=== PATIENT | female | born 1970 | race Caucasian/White ===

== ENCOUNTER → 2016-05-27 | Outpatient (CLI) | payer OTHER ==
[~2016-05-27] MED LIST: BUSP15TA70 PO; CLON0.5T3 PO; MAGNESIUM CHELATED PO; ONDA4TAB7 SL; PROM25TA9 PO; RIZA10TA18 PO; ZINC25TA2 PO; [UNRECOGNIZED DRUG - OTHER] PO
--- NOTE | 2016-05-28 15:11 | MAMMOGRAPHY REPORT ---
BILATERAL DIGITAL SCREENING MAMMOGRAM TOMOSYNTHESIS WITH CAD: 05/27/2016 CLINICAL HISTORY: Routine screening. Patient has no complaints. TECHNIQUE: Breast tomosynthesis in addition to standard 2D mammography was performed. Current study was also evaluated with a Computer Aided Detection (CAD) system. COMPARISON: Comparison is made to exams dated: 05/24/2015 mammogram, 05/20/2013 mammogram, 05/23/20 14 mammogram, 05/24/2013 mammogram, 05/18/2012 mammogram, and 05/03/2011 mammogram - [facility]. BREAST COMPOSITION: The tissue of both breasts is extremely dense, which lowers the sensitivity of mammography. FINDINGS: The parenchyma pattern is similar to prior exams. There are scattered stable benign-appea ring round and punctate microcalcifications. No new suspicious mass, architectural distortion or cl uster of microcalcifications is seen. IMPRESSION: ACR BI-RADS CATEGORY 1: NEGATIVE There is no mammographic evidence of malignancy. A 1 year screening mammogram is recommended. The p atient will receive written notification of the results. Approximately 10% of breast cancers are not detected with mammography. A negative mammographic repor t should not delay biopsy if a clinically suggestive mass is present. Darling Bueno M.D. ay/:05/27/2016 16:19:03 Associate Loan Officer: Rikki REEVES(Otis)(M), [facility] letter sent: Normal 1/2 BI-RADS Code: ACR BI-RADS Category 1: Negative
== END | disposition home or self-care (01) ==
LOC: C.MAMM 09:30
PROVIDERS: ATTEND Obstetrics & Gynecology
DX: Z12.31 Encounter for screening mammogram for malignant neoplasm of breast (principal)

== ENCOUNTER → 2017-01-03 | Day surgery (SDC) | payer OTHER ==
[2016-12-24 07:49] VITALS: Ht 160 cm; Wt 50.0 kg
[~2017-01-03] VITALS: Ht 160 cm; Wt 50.0 kg
[~2017-01-03] MED LIST changes: +LIDOCAINE HCL 2% 2 ML VIAL (20MG/ML) ONE; -ONDA4TAB7 SL; +PROPOFOL IV EMULSION 10 MG/ML 20 ML VIAL IV ONE; +SODIUM CHLORIDE 0.9% 500ML 500 ML IV ONE; -[UNRECOGNIZED DRUG - OTHER] PO
--- NOTE | 2017-01-03 11:14 | Endo History and Physical ---
History & Physical Date of Service: Jan 03, 2017. Chief Complaint: abnormal finding gi tract imaging, hx polyps Referring Physician: Dr. Margarita Iglesias History of Present Illness 46 yo CF who presents for colonoscopy secondary to history of colon polyps and abnormal GI imaging. Past Surgical History Hx Cardiac Surgery: No Hx Internal Defibrillator: No Hx Pacemaker: No Hx Abdominal Surgery: Yes (PARTIAL HYSTER) Hx of Implantable Prosthesis: No Hx Post-Op Nausea and Vomiting: No Hx Cancer Surgery: No Hx Thoracic Surgery: No Hx Orthopedic: No Hx Urinary Tract Surgery: No Family History Colon CA Social History Smoking Status: Never Smoker Hx Substance Use: No Hx Alcohol Use: Yes (SOCIAL) Allergies Coded Allergies: Celecoxib (Verified Allergy, Severe, ANAPHYLAXIS, 12/24/16) Current Medications Reported Home Medications Medications Dose Route/Sig Max Daily Dose Days Date Category Dose Instructions Zinc Picolinate (Zinc) 25 Mg Tab 50 Mg PO QAM 12/24/16 Reported [Magnesium Chelated] 400 Mg PO QAM 12/24/16 Reported Klonopin (Clonazepam) 0.5 Mg Tab 0.5 Mg PO TID PRN 12/24/16 Reported Buspar (Buspirone Hcl) 15 Mg Tab 15 Mg PO BID 12/24/16 Reported Phenergan (Promethazine HCl) 25 Mg Tab 25 Mg PO Q6H PRN 11/08/14 Reported Maxalt (Rizatriptan Benzoate) 10 Mg Tab 10 Mg PO UD PRN 03/19/11 Reported TAKE ONE TABLET AT ONSET OF MIGRAINE,MAY REPEAT IN TWO HOURS IF NEEDED. MAXIMUM OF TWO TABLETS OVER TWENTY-FOUR HOURS. Vital Signs Weight (Kilograms): 50 Height (Feet): 5 Height (Inches): 3 Date Time Temp Pulse Resp B/P (MAP) Pulse Ox O2 Delivery O2 Flow Rate FiO2 01/03/17 10:32 36.5 60 18 94/46 (62) 100 Room Air Physical Exam General Appearance: WD/WN, no apparent distress Respiratory/Chest: Auscultation: breath sounds normal Cardiovascular: Heart Auscultation: RRR Abdomen: Bowel Sounds: normal Inspection & Palpation: soft, non-distended, no tenderness, guarding & rebound Assessment and Plan Assessment: 46 yo CF who presents for colonoscopy secondary to history of colon polyps and abnormal GI imaging. Plan: Proceed with colonoscopy
--- NOTE | 2017-01-03 12:18 | Anesthesiology Progress Note ---
Anesthesia Post Op Note Date & Time Jan 03, 2017 at 12:18 Vital Signs Pain Intensity: 0 Vital Signs Past 12 Hours Date Time Temp Pulse Resp B/P (MAP) Pulse Ox O2 Delivery O2 Flow Rate FiO2 01/03/17 10:32 36.5 60 18 94/46 (62) 100 Room Air Notes Mental Status: alert / awake / arousable, participated in evaluation Pt Amnestic to Procedure: Yes Nausea / Vomiting: adequately controlled Pain: adequately controlled Airway Patency, RR, SpO2: stable & adequate BP & HR: stable & adequate Hydration State: stable & adequate Anesthetic Complications: no major complications apparent
--- NOTE | 2017-01-03 12:26 | GI REPORT ---
Procedure Date: 01/03/2017 11:34 AM Procedure: Colonoscopy Indications: High risk colon cancer surveillance: Personal history of colonic polyps Medicines: Monitored Anesthesia Care Complications: No immediate complications. Estimated Blood Loss: Estimated blood loss: none. Procedure: Pre-Anesthesia Assessment: - Prior to the procedure, a History and Physical was performed, and patient medications and allergies were reviewed. The patient's tolerance of previous anesthesia was also reviewed. The risks and benefits of the procedure and the sedation options and risks were discussed with the patient. All questions were answered, and informed consent was obtained. Prior Anticoagulants: The patient has taken no previous anticoagulant or antiplatelet agents. ASA Grade Assessment: II - A patient with mild systemic disease. After reviewing the risks and benefits, the patient was deemed in satisfactory condition to undergo the procedure. After I obtained informed consent, the scope was passed under direct vision. Throughout the procedure, the patient's blood pressure, pulse, and oxygen saturations were monitored continuously. The scope was introduced through the anus and advanced to the terminal ileum. The colonoscopy was performed without difficulty. The patient tolerated the procedure well. The quality of the bowel preparation was good. The terminal ileum, ileocecal valve, appendiceal orifice, and rectum were photographed. Findings: A 4 mm polyp was found in the rectum. The polyp was sessile. The polyp was removed with a cold snare. Resection and retrieval were complete. Non-bleeding internal hemorrhoids were found during retroflexion. The hemorrhoids were small. Impression: - One 4 mm polyp in the rectum, removed with a cold snare. Resected and retrieved. - Non-bleeding internal hemorrhoids. Recommendation: - Resume previous diet. - Continue present medications. - Repeat colonoscopy for surveillance based on pathology results. - Return to primary care physician as previously scheduled. Yordan Pollard DO 01/03/2017 12:26:01 PM This report has been signed electronically. Note Initiated On: 01/03/2017 11:34 AM I attest to the content of the Intraoperative Record and orders documented therein, exceptions below
--- NOTE | 2017-01-03 12:33 | Discharge Instructions ---
Endoscopy Patient Instructions Date / Procedure(s) Performed Jan 03, 2017. Colonoscopy Allergy Information Coded Allergies: Celecoxib (Verified Allergy, Severe, ANAPHYLAXIS, 12/24/16) Discharge Date / Findings Jan 03, 2017. Rectal polyp x1 Internal hemorrhoids Medication Instructions OK to resume all medications today as prescribed Reported Home Medications Medications Dose Route/Sig Max Daily Dose Days Date Category Dose Instructions Zinc Picolinate (Zinc) 25 Mg Tab 50 Mg PO QAM 12/24/16 Reported [Magnesium Chelated] 400 Mg PO QAM 12/24/16 Reported Klonopin (Clonazepam) 0.5 Mg Tab 0.5 Mg PO TID PRN 12/24/16 Reported Buspar (Buspirone Hcl) 15 Mg Tab 15 Mg PO BID 12/24/16 Reported Phenergan (Promethazine HCl) 25 Mg Tab 25 Mg PO Q6H PRN 11/08/14 Reported Maxalt (Rizatriptan Benzoate) 10 Mg Tab 10 Mg PO UD PRN 03/19/11 Reported TAKE ONE TABLET AT ONSET OF MIGRAINE,MAY REPEAT IN TWO HOURS IF NEEDED. MAXIMUM OF TWO TABLETS OVER TWENTY-FOUR HOURS. Provider Instructions Activity Restrictions - No exercising or heavy lifting for 24 hours. - Do not drink alcohol the day of the procedure. - Do not drive a car or operate machinery until the day after the procedure. - Do not make any important decisions or sign important papers in 24 hours after the procedure. Following Day: - Return to full activity which may include returning to work/school. Diet Start your diet with liquids and light foods (jello, soup, juice, toast). Then eat your usual diet if not nauseated. Treatment For Common After Affects For mild abdominal pain, bloating, or excessive gas: - Rest - Eat lightly - Lie on right side Follow-Up Information Follow-up with Dr. Margarita Iglesias as scheduled Anesthesia Information What You Should Know You have had a procedure that required some medicine to reduce anxiety and discomfort. This treatment is called moderate sedation. After receiving the treatment, you may be sleepy, but you will be able to breathe on your own. The effects of the treatment may last for several hours. Follow these instructions along with Activity/Diet recommendations noted above: * Do NOT do anything where dizziness or clumsiness would be dangerous. * Rest quietly at home today, then you can be up and about tomorrow. * Have a responsible person stay with you the rest of today. * You may have had an I.V. today. If so, you may take the dressing off later today. Recommendations Call your doctor if: * Trouble breathing * Continuous vomiting for more than 24 hours * Temperature above 101 degrees * Severe abdominal pain or bloating * Pain not relieved by pain medicine ordered * There is increased drainage or redness from any incision * A large amount of rectal bleeding greater than 2-3 tablespoons. (If you had a polyp/s removed or have hemorrhoids, a small amount of blood - from the rectum is to be expected.) * You have any unanswered questions or concerns. IN THE EVENT OF A SERIOUS EMERGENCY, GO TO THE NEAREST EMERGENCY ROOM Your discharge instructions were prepared by provider Yordan Pollard. Patient Instructions Signature Page Kylah Dee Patient (or Guardian) Signature/Date: I have read and understand the instructions given to me by my caregivers. Caregiver/RN/Doctor Signature/Date: The above-named patient and/or guardian has received patient instructions on this date. + Original Patient Signature Page (only) stays with chart. Please make copy for patient.
[2017-01-03 12:45] VITALS: BP 100/53; PULSE 59; O2SAT 100
== END | disposition home or self-care (01) ==
LOC: C.GI 09:47
PROVIDERS: ATTEND Internal Medicine
DX: Z12.11 Encounter for screening for malignant neoplasm of colon (principal); K62.1 Rectal polyp; K64.8 Other hemorrhoids; Z86.010 Personal history of colon polyps; Z80.0 Family history of malignant neoplasm of digestive organs; Z79.899 Other long term (current) drug therapy

== ENCOUNTER → 2017-02-10 | Outpatient (CLI) | payer OTHER ==
[~2017-02-10] MED LIST changes: -LIDOCAINE HCL 2% 2 ML VIAL (20MG/ML) ONE; -PROPOFOL IV EMULSION 10 MG/ML 20 ML VIAL IV ONE; -SODIUM CHLORIDE 0.9% 500ML 500 ML IV ONE
== END | disposition home or self-care (01) ==
LOC: C.PAPS 10:29
PROVIDERS: ATTEND Obstetrics & Gynecology
DX: Z01.419 Encounter for gynecological examination (general) (routine) without abnormal findings (principal)

== ENCOUNTER → 2017-05-30 | Outpatient (CLI) | payer OTHER ==
--- NOTE | 2017-06-02 07:35 | MAMMOGRAPHY REPORT ---
BILATERAL DIGITAL SCREENING MAMMOGRAM TOMOSYNTHESIS WITH CAD: 05/30/2017 CLINICAL HISTORY: Routine screening. TECHNIQUE: Breast tomosynthesis in addition to standard 2D mammography was performed. Current study was also evaluated with a Computer Aided Detection (CAD) system. COMPARISON: Comparison is made to exams dated: 05/27/2016 mammogram, 05/24/2015 mammogram, 05/23/2014 mammogram, 05/20/2013 mammogram, 05/18/2012 mammogram, and 05/03/2011 mammogram - [facility]. BREAST COMPOSITION: The tissue of both breasts is extremely dense, which lowers the sensitivity of m ammography. FINDINGS: There is a possible new group of calcifications within the left upper outer quadrant, for which spot magnification views are recommended for further evaluation. The remainder of both breasts are stable compared to prior exams, without suspicious masses, calcific ations, or areas of architectural distortion noted. Other scattered bilateral benign-appearing calci fications are not significantly changed. Asymmetry in the left superior posterior breast overlying t he pectoralis muscle is stable dating back to at least the 2012 exam. IMPRESSION: ACR BI-RADS CATEGORY 0: INCOMPLETE EVALUATION: NEED ADDITIONAL IMAGING EVALUATION Left upper outer quadrant calcifications, for which additional imaging evaluation is recommended. The patient will be called to schedule an appointment. Approximately 10% of breast cancers are not detected with mammography. A negative mammographic report should not delay biopsy if a clinically suggestive mass is present. Magi Domingo M.D. /:05/30/2017 15:26:14 Dining Room Captain: Rikki REEVES(Otis)(M), [facility] letter sent: Addl Imaging 0 BI-RADS Code: ACR BI-RADS Category 0: Incomplete Evaluation: Need Additional Imaging Evaluation
== END | disposition home or self-care (01) ==
LOC: C.MAMM 09:29
PROVIDERS: ATTEND Family Medicine
DX: Z12.31 Encounter for screening mammogram for malignant neoplasm of breast (principal); R92.1 Mammographic calcification found on diagnostic imaging of breast

== ENCOUNTER → 2017-06-04 | Outpatient (CLI) | payer OTHER ==
--- NOTE | 2017-06-04 15:32 | MAMMOGRAPHY REPORT ---
UNILATERAL LEFT DIGITAL DIAGNOSTIC MAMMOGRAM: 06/04/2017 CLINICAL HISTORY: 47-year-old woman called back from screening mammography for a possible cluster of microcalcifications in the left upper outer quadrant. No family history of breast cancer. TECHNIQUE: Spot magnification left CC and ML views were obtained. COMPARISON: Comparison is made to exams dated: 05/30/2017 mammogram, 05/24/2015 mammogram, 05/27/2016 ma mmogram, 05/23/2014 mammogram, 05/24/2013 mammogram, and 05/20/2013 mammogram - [facility]. BREAST COMPOSITION: The tissue of the left breast is extremely dense, which lowers the sensitivity o f mammography. FINDINGS: There is 4 mm cluster of round and punctate microcalcifications in the upper outer middle one third of the left breast. No obvious associated architectural distortion or mass. When comparin g back to prior available mammograms, these microcalcifications are new and therefore indeterminate. There are other scattered round microcalcifications in the visualized left breast, suggesting they c ould represent fibrocystic change, although DCIS cannot be completely excluded. Definitive character ization with a stereotactic biopsy is recommended. IMPRESSION: ACR BI-RADS CATEGORY 4: SUSPICIOUS Left breast stereotactic guided biopsy is recommended for a new 4 mm cluster of round and punctate mi crocalcifications in the left upper outer quadrant. These results and recommendations were discussed with the patient at the time of the exam. She tenta tively scheduled the left breast biopsy prior to leaving our department. We also talked about additi onal supplemental screening given extremely dense breasts, touching on screening breast MRI and whole breast ultrasound depending on the patient's personal risk factors. Approximately 10% of breast cancers are not detected with mammography. A negative mammographic report should not delay biopsy if a clinically suggestive mass is present. Darling Bueno M.D. ay/:06/04/2017 13:23:45 Call Center Agent: Aury Velazquez, [facility] letter sent: Abnormal 4/5 BI-RADS Code: ACR BI-RADS Category 4: Suspicious
== END | disposition home or self-care (01) ==
LOC: C.MAMM 12:51
PROVIDERS: ATTEND Family Medicine
DX: R92.0 Mammographic microcalcification found on diagnostic imaging of breast (principal)

== ENCOUNTER → 2017-06-09 | Outpatient (CLI) | payer OTHER ==
--- NOTE | 2017-06-09 13:25 | Discharge Instructions ---
Discharge Instructions Procedure Procedure Date: Jun 09, 2017. Reason for visit: Left Calcs. Discharge Discharge Date: Jun 09, 2017. Discharge Diagnosis: post left breast stereotactic guided biopsy Instructions Activity Recommendations: Additional Limitations (see below) Return to School/Work: no limitations Recommended Home Diet: No Limitations Provider Instructions: ACTIVITY RECOMMENDATIONS: * No lifting, pushing, pulling or exercising the affected side for three days. RETURN TO SCHOOL/WORK: * You may return to work/school after the procedure, but do not perform any strenuous activities for 24 to 48 hours. MEDICATIONS: * Tylenol (two 325 mg) every four to six hours if needed for mild pain (if not allergic to Tylenol). DIET: * Resume previous diet. SPECIAL CARE INSTRUCTIONS: * Keep biopsy site dry for 24 hours. May shower after 24 hours, but do not soak (bathe) incision. * May remove Tegaderm (plastic patch) tomorrow AFTER showering. * Leave the steri-strips on for one week. Allow the steri-strips to fall off by themselves. If not off after one week, you may remove them. You may place a Bandaid crosswise over the strips, if desired. * Apply ice 10 minutes on and 10 minutes off as needed. * Wear a bra at bedtime to sleep more comfortably for 2-3 days. * Your referring physician should have the results after approximately 5 to 7 business days. * Call for unusual bleeding, fever, drainage, etc or if you have any questions call [phone] during normal business hours or after hours call Dr Bueno, . FOLLOW UP VISIT: Follow-up with Referring Physician as scheduled. Allergies Coded Allergies: Celecoxib (Verified Allergy, Severe, ANAPHYLAXIS, 12/24/16) Dario Wall Recommendations: Call your doctor if: * Temperature above 101 degrees * Pain not relieved by pain medicine ordered * There is increased drainage or redness from any incision * You have any unanswered questions or concerns. Your Doctors Instructions noted above were prepared by provider Darling Bueno. Patient Signature Section: Patient Instructions Signature Page Kylah Dee Patient (or Guardian) Signature/Date: I have read and understand the instructions given to me by my caregivers. Caregiver/RN/Doctor Signature/Date: The above-named patient and/or guardian has received patient instructions on this date. + Original Patient Signature Page (only) stays with chart. Please make copy for patient.
--- NOTE | 2017-06-09 14:46 | MAMMOGRAPHY REPORT ---
STEREOTACTIC GUIDED BIOPSY LEFT BREAST: 06/09/2017 CLINICAL HISTORY: 47-year-old woman presents for biopsy of a newly visualized 4 mm cluster of round a nd punctate microcalcifications in the left upper outer quadrant. COMPARISON: Comparison is made to exams dated: 06/09/2017 mammogram, 06/04/2017 mammogram, 05/30/2017 ma mmogram, 05/27/2016 mammogram, 05/24/2015 mammogram, and 05/23/2014 mammogram - [facility]. PATIENT CONSENT: After explaining the risks, benefits and alternatives of the procedure to the patien t, informed consent was obtained both verbally and in writing. Specific risks include: Bleeding, inf ection, puncture of adjacent structure, pain, nontarget biopsy, sampling error, metal allergy and med ication reaction. PROCEDURE DESCRIPTION: A time-out was performed and the left breast was confirmed as the site of biop sy. The patient was placed prone on the stereotactic biopsy table and the breast was placed in CC fro m above compression. A monument stonecutter image was obtained that demonstrated the clustered microcalcifications i n question. They are amenable to sterotactic biopsy. Then +15 and -15 stereo pair images were obta ined. The calcifications were targeted utilizing the coordinates obtained by the computer. The skin was prepped with Betadine. 1% Lidocaine with and without epinipherine was administered as local anest hesia. A small skin incision was made. Through the incision, the needle was inserted to the depth de termined by the computer. 10 samples were obtained using a [employer]iva 9-gauge vacuum-assisted biopsy device. The specimen radiograph demonstrated several sales promotion representative microcalcifications, there fore, a metallic marker was placed at the biopsy site. There was no immediate complication. Hemostasi s was achieved after several minutes of manual compression. The samples were sent to pathology in tw o appropriately labeled containers, "with calcifications" and "without calcifications". All of the sa mples were obtained from the same single biopsy site. Postprocedure CC and ML views of the left breast were obtained. There is a new dumbbell-shaped biop sy marker clip, a few air bubbles and no significant hematoma in the approximate 2:00 middle one thir d of the left breast, at the site of the biopsied clustered microcalcifications seen mammographically . IMPRESSION: STEREOTACTIC GUIDED BIOPSY Status post left breast stereotactic biopsy of a 4 mm cluster of round and punctate microcalcificatio ns in the left upper outer quadrant, with biopsy marker placed at the site. The patient will receive notification of the biopsy results from her referring physician. Darling Bueno M.D. ay/:06/09/2017 13:49:54 Site Acquisition Manager: Rikki REEVES(R)(M), [facility]
--- NOTE | 2017-06-09 14:49 | MAMMOGRAPHY REPORT ---
UNILATERAL LEFT DIGITAL DIAGNOSTIC MAMMOGRAM: 06/09/2017 CLINICAL HISTORY: Status post left breast stereotactic biopsy of new clustered punctate microcalcific ations in the upper outer middle one third of the breast. Please refer to the report from left breast stereotactic guided biopsy performed at the same time for full detail. IMPRESSION: POST PROCEDURE IMAGING FOR MARKER PLACEMENT Please refer to the report from left breast stereotactic guided biopsy performed at the same time for full detail. Approximately 10% of breast cancers are not detected with mammography. A negative mammographic report should not delay biopsy if a clinically suggestive mass is present. Darling Bueno M.D. ay/:06/09/2017 13:26:50 Spanish Interpreter: Rikki RAMIREZ)(M), [facility] BI-RADS Code: Post Procedure Imaging For Marker Placement
== END | disposition home or self-care (01) ==
LOC: C.MAMM 12:40
PROVIDERS: ATTEND Family Medicine
DX: R92.0 Mammographic microcalcification found on diagnostic imaging of breast (principal); N60.92 Unspecified benign mammary dysplasia of left breast

== ENCOUNTER → 2017-07-09 | Outpatient (CLI) | payer OTHER ==
[~2017-07-09] MED LIST changes: +GADAVIST IV PRN
--- NOTE | 2017-07-10 15:10 | MAMMOGRAPHY REPORT ---
BREAST MRI OF BOTH BREASTS : 07/09/2017 CLINICAL HISTORY: 47-year-old woman who presents after a recent left breast stereotactic biopsy of a small new grouping of microcalcifications at atypia. COMPARISON: Comparison is made to exams dated: 06/09/2017 mammogram, 06/04/2017 mammogram, 05/30/2017 ma mmogram, 05/27/2016 mammogram, 05/24/2015 mammogram, and 05/23/2014 mammogram - [facility]. TECHNIQUE: Using a 1.5 Yolanda magnet and dedicated breast coil, multisequence axial images were obtain ed through the breasts. After uneventful IV administration of 5 mL of Gadavist, dynamic multiphase c ontrast-enhanced axial images, and sagittal postcontrast were obtained. Temporal subtraction axial i mages and 3-D MIP images are provided. Everything was then reviewed on a 3-D workstation, [employer]. FINDINGS: There are scattered cysts in both breasts, compatible with fibrocystic change. The dominant cyst in the approximate 12:00 middle one third of the left breast measures 15 mm. There is moderate backgrou nd parenchymal enhancement in the breasts. No dominant suspicious enhancing mass, definite suspiciou s area of non-mass enhancement, architectural distortion or suspicious kinetics identified. There is a small round area of susceptibility artifact in the upper outer middle one third of the left breast , denoting the site of recent stereotactic biopsy which yielded atypia. There is no abnormal enhance ment surrounding the biopsy marker clip to suggest additional disease at the site of biopsy. No abno rmal focal skin thickening or nipple retraction appreciated. The retromammary fat is intact. No concepcion picious axillary adenopathy identified. IMPRESSION: ACR BI-RADS CATEGORY 4: SUSPICIOUS 1. Susceptibility artifact from a biopsy marker clip is identified in the upper outer middle one thi rd of the left breast, denoting the site of biopsy-proven atypia. Surgical excision is recommended, although there is no abnormal enhancement surrounding the biopsy marker clip to suggest additional di sease. 2. Within the limitations of slight lowered sensitivity given the moderate degree of background enha ncement, no suspicious enhancing masses, definite non-mass enhancement or suspicious kinetics are see n bilaterally. Darling Bueno M.D. ay/:07/09/2017 16:46:14 Superintendent Sales: protective signal repairer helper, [facility] letter sent: Abnormal 4/5 BI-RADS Code: ACR BI-RADS Category 4: Suspicious
== END | disposition home or self-care (01) ==
LOC: C.MRI 06:29
PROVIDERS: ATTEND Surgery
DX: Z12.31 Encounter for screening mammogram for malignant neoplasm of breast (principal); N60.99 Unspecified benign mammary dysplasia of unspecified breast

== ENCOUNTER → 2018-01-08 | Outpatient (CLI) | payer OTHER ==
[~2018-01-08] MED LIST changes: -CLON0.5T3 PO; -GADAVIST IV PRN; +KLN/5 PO; -MAGNESIUM CHELATED PO; +MISCCAP80 PO; -ZINC25TA2 PO
--- NOTE | 2018-01-08 15:43 | MAMMOGRAPHY REPORT ---
UNILATERAL LEFT DIGITAL DIAGNOSTIC MAMMOGRAM TOMOSYNTHESIS WITH CAD AND TARGETED LEFT ULTRASOUND: 12/24 CLINICAL HISTORY: History of left breast stereotactic biopsy which yielded atypia. 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 She also had 2 weeks o f radiation therapy. The patient reports swelling and soreness of her left upper outer breast for lars roximately 2 weeks. She denies any skin erythema but noticed possible skin changes of the inferior as pect of her left areola. TECHNIQUE: The study was acquired using full field digital technology and interpreted from soft copy. Breast tomosynthesis in addition to standard 2D mammography was performed. Current study was also ev aluated with a Computer Aided Detection (CAD) system. Left CC and MLO 2D and tomosynthesis images we re obtained. Spot magnification views were not obtained of the surgical bed as the patient could not tolerate the additional views due to pain. COMPARISON: Comparison is made to exams dated: 06/09/2017 mammogram, 06/04/2017 mammogram, 05/30/2017 ma mmogram, 05/27/2016 mammogram, 05/24/2015 mammogram, and 07/09/2017 breast MRI - [facility] C enter. BREAST COMPOSITION: The tissue of left breast is extremely dense, which lowers the sensitivity of layo mography. FINDINGS: There are new expected postsurgical changes in the left upper outer quadrant from prior lumpectomy, i ncluding new architectural distortion at the surgical bed. A linear scar marker denotes a scar in th e left upper outer breast. There is minimal skin thickening involving the left lateral breast overly ing the surgical bed, possibly due to radiation therapy. The remainder of the left breast is stable compared to prior exams, without suspicious masses, calcifications, or areas of architectural distort ion noted. Targeted ultrasound was performed of the area of pain and swelling pointed out by the patient involvi ng the left upper outer quadrant. There is ill-defined hypoechoic tissue in the left 2:00 breast at the surgical bed, consistent with expected postsurgical changes. No focal fluid collection is seen a t the surgical bed or elsewhere in the left upper outer quadrant to suggest abscess. No suspicious m asses or other suspicious sonographic abnormalities are seen. Targeted ultrasound was also performed in the left subareolar region in the area of skin changes pointed out by the patient involving the l eft inferior areola, which shows no suspicious masses or other suspicious sonographic findings. IMPRESSION: ACR-BI-RADS CATEGORY 3: PROBABLY BENIGN, ULTRASOUND ACR-BI-RADS CATEGORY 3: PROBABLY TIM GN Expected postsurgical changes in the left upper outer quadrant from prior lumpectomy, with no evidenc e of malignancy in the left breast. No etiology for pain and swelling in the left upper outer quadra nt described by the patient. Recommend clinical follow-up for left breast complaints. Additionally, recommend diagnostic tomosynthesis mammograms of the left breast in 6 months to reevaluate posttreat ment changes. Annual mammography of the right breast will be due at that time. The patient has been verbally notified of the results. Some breast cancers are not detected with mammography. A negative mammographic report should not yves y biopsy if a clinically suggestive mass is present. Magi Domingo M.D. ah/:01/08/2018 14:23:33 [employer]: RT Kaylee(R)(M), [facility]; Magi Domingo MD, [facility] letter sent: Personal History 3 OVERALL STUDY BIRADS: 3 Probably benign
== END | disposition home or self-care (01) ==
LOC: C.MAMM 13:46
PROVIDERS: ATTEND Surgery
DX: N64.4 Mastodynia (principal); Z98.890 Other specified postprocedural states; Z87.898 Personal history of other specified conditions